=== PATIENT | male | born 2000 | race Caucasian/White ===

== ENCOUNTER 2020-09-26 06:43 | Emergency (ER) | payer OTHER ==
[~2020-09-26] VITALS: Ht 177.8 cm; Wt 84.1 kg
[2020-09-26] MEDS ORDERED: ACETAMINOPHEN 325 MG TABLET PO ONE (07:00)
[2020-09-26 07:28] VITALS: BP 121/69
== END 2020-09-26 07:45 | disposition home or self-care (01) ==
LOC: EMS 06:44
DX: S63.287A Dislocation of proximal interphalangeal joint of left little finger, initial encounter (principal); W19.XXXA Unspecified fall, initial encounter; Y93.89 Activity, other specified; Y92.89 Other specified places as the place of occurrence of the external cause; Y99.8 Other external cause status
CPT/HCPCS: 26770; 73130-TC; Z7502; Z7610